=== PATIENT | female | born 2000 | race Caucasian/White ===

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

== ENCOUNTER 2018-01-16 10:16 | Outpatient (CLI) | payer BC ==
--- NOTE | 2018-01-16 14:05 | NM ---
NUCLEAR MEDICINE HEPATOBILIARY SCAN WITH EJECTION FRACTION: History: 17-year-old female with chronic idiopathic constipation, generalized abdominal pain, irritable bowel, weight gain. Patient was injected with 5 mCi Technetium 99M Mebrofenin intravenously. FINDINGS: There is prompt uptake of the tracer by the liver with rapid excretion into the biliary tree and gall bladder and emptying into the duodenum. At the one hour time interval the patient was given 8 oz of E nsure orally. Gallbladder ejection fraction equals 63% which is within normal limits. IMPRESSION: Normal Nuclear Medicine hepatobiliary scan and ejection fraction. POS: INDERJIT
== END 2018-01-16 10:17 | disposition home or self-care (01) ==
LOC: NM 10:16
PROVIDERS: ATTEND Internal Medicine Gastroenterology
DX: K58.1 Irritable bowel syndrome with constipation (principal); K59.04 Chronic idiopathic constipation; R63.5 Abnormal weight gain; R21 Rash and other nonspecific skin eruption
CPT/HCPCS: 78227; A9537

== ENCOUNTER 2018-10-15 06:57 | Outpatient (CLI) | payer BC ==
--- NOTE | 2018-10-15 07:55 | ULT ---
COMPLETE ABDOMINAL ULTRASOUND: HISTORY: Hepatosplenomegaly. Abdominal pain. COMPARISON: None. TECHNIQUE: Multiplanar titus-scale and color Doppler images were obtained in a complete abdominal ultrasound. FINDINGS: The liver is normal in echogenicity without focal lesions or intrahepatic ductal dilatation. The gal lbladder is normal without stones, sludge, gallbladder wall thickening, or pericholecystic fluid. Th e common bile duct is normal, measuring 4 mm. The aorta and inferior vena cava are normal in caliber. The visualized portions of the pancreas are unremarkable. The spleen is normal in echogenicity without focal lesions and measures 9.4 cm in theron th. Both kidneys are normal in echogenicity without hydronephrosis or calculi and measure 9.1 and 10.7 cm in length on the right and left, respectively. IMPRESSION: Unremarkable examination. POS: INDERJIT
== END 2018-10-15 06:58 | disposition home or self-care (01) ==
LOC: BICULT 06:57
PROVIDERS: ATTEND Internal Medicine Hematology & Oncology
DX: R16.2 Hepatomegaly with splenomegaly, not elsewhere classified (principal); R10.9 Unspecified abdominal pain; L50.0 Allergic urticaria; R11.0 Nausea
CPT/HCPCS: 76700

== ENCOUNTER 2022-03-16 13:37 | Outpatient (CLI) | payer BC | END 2022-03-16 13:38 | disposition home or self-care (01) | LOC: SCSRAD 13:37 | PROVIDERS: ATTEND Nurse Practitioner Family | DX: U07.1 COVID-19 (principal) | CPT/HCPCS: 71046 ==